=== PATIENT | female | born 2000 | race Caucasian/White ===

== ENCOUNTER 2022-08-29 17:54 | Emergency (ER) | payer OTHER, SELFPAY ==
--- OUTSIDE RECORDS SUMMARY | 2022-08-29 17:57 | XMS REPORT | Continuity of Care Document ---
:2000 Author Organization [facility] t Address [address] [place] [address] Care Team Providers Name Role Phone COREEN GORDON Primary Care Physician Unavailable COREEN GORDON Attending Clinician Unavailable Manju Pope CGC Attending Clinician Unavailable RAEANN GEORGE Attending Clinician Unavailable MALOU DORSEY Attending Clinician Unavailable TIRMIDEMETRIS, DO AATIF H. Attending Clinician Unavailable FUNMILAYO KNIGHT Admitting Clinician Unavailable TIRMIDEMETRIS, DO AATIF H. Admitting Clinician Unavailable Payers Payer Name Policy Type Policy Number Effective Date Expiration Date Claudette hayward [facility] [id number] 2019 00:00:00 [employer]AR Problems Condition Condition Condition Status Onset Resolution Last Treating Co mments Source Name Details Category Date Date Treatment Clinician Date Bipolar 1 Bipolar 1 Disease Active Kranthi ris disorder disorder 12-06 Health 00:00: 00 Severe Severe Disease Active Methodi episode of episode of 12-09 recurrent recurrent 00:00: Hosp yadira major major 00 l depressive depressive disorder, disorder, without without psychotic psychotic features features Hypokalemi Hypokalemi Disease Active M ethodi a a 12-09 00:00: Hospita 00 l Allergies, Adverse Reactions, Alerts This patient has no known allergies or adverse reactions. Family History Family Member Diagnosis Comments Start Date Stop Date Source Natural mother Bipolar disorder [facility] Maternal grandmother Diabetes [facility] Maternal grandmother Hypertension [facility] Social History Social Habit Start Date Stop Date Quantity Comments Source History [facility] B[facility] Alcohol Comment Alcohol intake 2021-12-25 2021-12-25 Lifetime [facility] 00:00:00 00:00:00 non-drinker (finding) History SDOR 2020-08-04 2020-08-04 1 [facility] Alcohol Frequency 00:00:00 00:00:00 Tobacco use and 2019-12-03 2019-12-03 Smokeless tobacco [facility] exposure 00:00:00 00:00:00 non-user Sex Assigned At [birth year] Elie [facility] 00:00:00 00:00:00 Smoking Status Start Date Stop Date Source Unknown if ever smoked [facility] Never smoked tobacco [facility] Medications Ordered Filled Start Stop Current Ordering Indication Dosage Frequency Signature Comments Components Source Medication Medication Date Date Medication? Clinician (SIG) Name Name risperiDONE Yes 1mg Take 1 Bertha is (RISPERDAL) 6-14 tablet by [facility] lt 1 mg tablet 00:00: mouth at 00 bedtime nightly citalopram Yes 20mg Take 1 Jude s (CELEXA) 20 6-14 tablet by [facility] lt mg tablet 00:00: mouth 00 every morning risperiDONE 2021-2021- No Bipolar 1 1mg Take 1 [facility] (RISPERDAL) -08 05-14 disorder tablet by Health 1 mg tablet 00:00: 00:00 mouth at 00 :00 bedtime nightly citalopram 2021-0 2021- No Bipolar 1 20mg Take 1 [facility] (CELEXA) 20 -08 05-14 disorder tablet by Health mg tablet 00:00: 00:00 mouth 00 :00 every morning citalopram 2021-0 2021- No 20mg Take 1 Bertha is (CELEXA) 20 12-25 tablet by alth mg tablet 00:00: 00:00 mouth 00 :00 every morning risperiDONE 2021-0 2021- No 1mg Take 1 Kranthi ris (RISPERDAL) 12-25 tablet by He alth 1 mg tablet 00:00: 00:00 mouth at 00 :00 bedtime nightly citalopram 2021- No Bipolar 20mg Take 1 H arris (CELEXA) 20 12-10 affective tablet by [facility] mg tablet 00:00: 00:00 disorder, mouth 00 :00 remission every status morning unspecified risperiDONE 2021- No Bipolar 1mg Q.5D Take 1 [facility] (RISPERDAL 12-09 affective tablet by [facility] M-TABS) 1 00:00: 00:00 disorder, mouth 2 mg soluble 00 :00 remission times tablet status daily unspecified No known No No known Metho di medications 12-[address] 16:44: s Hospita 59 l Immunizations Ordered Immunization Filled Immunization Date Status Commen ts Source Name Name HPV 9-valent 2020-08-02 Completed [facility] 00:00:00 Meningococcal groups 2020-08-02 Completed [facility] A,C,Y, W Vaccine 00:00:00 HPV 9-valent 2019-12-03 Completed [facility] 00:00:00 Meningococcal groups 2019-12-[address] [facility] is Health A,C,Y, W Vaccine 00:00:00 Hepatitis A 2011-12-10 Completed [facility] <Unspecified> 00:00:00 DTap <Unspecified> 2003-04-07 Completed [facility] 00:00:00 Hib <Unspecified> 2003-04-07 Completed [facility] 00:00:00 Pneumococcal 2003-04-07 Completed [facility] Conjugate 00:00:00 <Unspecified> Vital Signs Vital Name Observation Time Observation Value Comments Source Body height 2022-04-30 11:36:00 162.6 cm [facility] Body weight 2022-04-30 11:36:00 78.019 kg [facility] BMI 2022-04-30 11:36:00 29.52 kg/m2 [facility] Systolic blood pressure 2022-04-30 11:36:00 118 mm[Hg] [facility] Diastolic blood pressure 2022-04-30 11:36:00 75 mm[Hg] [facility] Heart rate 2022-04-30 11:36:00 89 /min [facility] Body temperature 2022-04-30 11:36:00 36.72 [facility] Respiratory rate 2022-04-30 11:36:00 18 /min [facility] Oxygen saturation in 2021-12-07 18:14:00 88 /min [facility] Arterial blood by Pulse oximetry Procedures Procedure Date / Time Performed Performing Clinician Sour e DRUG ABUSE SCREEN 11 W/ETOH, 2021-12-25 11:30:00 [facility] NO CONF TEST, URINE 2021-12-25 11:30:00 [facility] POC COVID-19 2021-12-06 00:00:00 [facility] URINE 2021-12-06 00:00:00 [facility] 2021-12-06 00:00:00 [facility] SCREEN Plan of Care Planned Activity Planned Date Details Comments Source Future Scheduled Test 2022-08-17 00:00:00 IMM Influenza [facility] Seasonal (>/= 19 yrs) [code = IMM Influenza Seasonal (>/= 19 yrs)] Future Scheduled Test 2003-03-20 00:00:00 COVID-19 Vaccine (#1) [facility] [code = COVID-19 Vaccine (#1)] Future Scheduled Test 2002 00:00:00 Fluoride Varnish [facility] [code = Fluoride Varnish] Encounters Start End Encounter Admission Attending Care Care Encounter Source Date/Time Date/Time Type Type Clinicians Facility Department ID 2021-03-27 Outpatient [facility] [id number] [place] 14:01:20 Health 2021-12-16 2021-12-16 Outpatient HARJINDERO, [facility] [id number] [place] 14:41:39 23:59:00 [facility] 2021-12-06 2021-12-06 Outpatient ARRAZOLO, [facility] [id number] [place] 16:58:30 23:59:00 [facility] 2021-04-02 2021-04-02 Telephone SANIA Pope [id number] [place] 00:00:00 00:00:00 Manju GOMEZ [id number] [facility] [id number] 2020-12-09 2020-12-12 Inpatient [facility] [id number] [place] 00:00:00 00:00:00 RAEANN [address] 2020-12-08 2020-12-09 Emergency [facility] [id number] [place] 00:00:00 00:00:00 AATIF [address] Results Test Description Test Time Test Comments Results Result Comments Source SARS-CoV-2 (COVID-19) RNA [Presence] in Respiratory sp ecimen by 2020-12-08 19:30:01 CHENG with probe detection Test Item Value Reference Range Interpretation Comme nts SARS-CoV-2 (COVID-19) RNA [Presence] in Respiratory Not detected No t-Detected specimen by CHENG with probe detection (test code = 88740-5)
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
[2022-08-29 20:00] VITALS: BP 115/78; TEMP 98.8; O2SAT 100
== END 2022-08-29 19:46 | disposition home or self-care (01) ==
LOC: ER 17:54
DX: Z04.6 Encounter for general psychiatric examination, requested by authority (principal); F31.9 Bipolar disorder, unspecified; F32.A Depression, unspecified; F41.9 Anxiety disorder, unspecified
CPT/HCPCS: 99281

== ENCOUNTER 2022-09-03 23:59 | Emergency (ER) | payer OTHER, SELFPAY ==
--- OUTSIDE RECORDS SUMMARY | 2022-09-04 00:02 | XMS REPORT | Continuity of Care Document ---
:2000 Author Organization [facility] t Address [address] [place] [address] Care Team Providers Name Role Phone Coreen Guido NP Primary Care Physician COREEN GUIDO Attending Clinician Unavailable Manju Pope CGC Attending Clinician Unavailable RAEANN GEORGE Attending Clinician Unavailable MALOU DORSEY Attending Clinician Unavailable TIRMIDEMETRIS DO AATIF HZoran Attending Clinician Unavailable FUNMILAYO KNIGHT Admitting Clinician Unavailable TIRMIDEMETRIS, DO AATIF H. Admitting Clinician Unavailable Payers Payer Name Policy Type Policy Number Effective Date Expiration Date Claudette hayward [facility] [id number] 2019 00:00:00 HEALTH PLAN STAR Problems Condition [...] Stop Date Source Natural mother Bipolar disorder [facility] Maternal grandmother Diabetes Ebrtha is [facility] Maternal grandmother Hypertension [facility] Social History Social Habit Start Date Stop Date Quantity Comments Source History SDOH [facility] Std Drinks [facility] B[facility] Comment Alcohol intake 2021-12-25 2021-12-25 Lifetime [facility] 00:00:00 00:00:00 non-drinker (finding) History SDGA 2020-08-04 2020-08-04 1 [facility] Alcohol Frequency 00:00:00 00:00:00 Tobacco use and 2019-12-03 2019-12-03 Smokeless tobacco [facility] exposure 00:00:00 00:00:00 non-user Sex Assigned At [birth year] [facility] 00:00:00 00:00:00 Smoking Status Start Date Stop Date Source Unknown if ever smoked [facility] Never smoked tobacco [facility] Medications Ordered Filled Start Stop Current Ordering Indication Dosage Frequency Signature Comments Components Source Medication Medication Date Date Medication? Clinician (SIG) Name Name risperiDONE Yes 1mg Take 1 Bertha is (RISPERDAL) 6-14 tablet by [facility] lt 1 mg tablet 00:00: mouth at 00 bedtime nightly citalopram 0 Yes 20mg Take 1 Harri s (CELEXA) 20 6-14 tablet by [facility] lth mg tablet 00:00: mouth 00 every morning risperiDONE Yes 1mg Take 1 Bertha is (RISPERDAL) 6-14 tablet by [facility] 1 mg tablet 00:00: mouth at 00 bedtime nightly citalopram 0 Yes 20mg Take 1 Harri s (CELEXA) 20 6-14 tablet by [facility] lth mg tablet 00:00: mouth 00 every morning risperiDONE 2021- No Bipolar 1 1mg Take 1 [facility] (RISPERDAL) -08 05-14 disorder tablet by Health 1 mg tablet 00:00: 00:00 mouth at 00 :00 bedtime nightly citalopram 2021- No Bipolar 1 20mg Take 1 [facility] (CELEXA) 20 3-22 06-14 disorder tablet by Health mg tablet 00:00: 00:00 mouth 00 :00 every morning risperiDONE 2021- No Bipolar 1 1mg Take 1 [facility] (RISPERDAL) 02-05 disorder tablet by Health 1 mg tablet 00:00: 00:00 mouth at 00 :00 bedtime nightly citalopram 2021- No Bipolar 1 20mg Take 1 [facility] (CELEXA) 20 02-05 disorder tablet by Health mg tablet 00:00: 00:00 mouth 00 :00 every morning citalopram 2021-2021- No 20mg Take 1 Bertha is (CELEXA) 20 12-25 tablet by alth mg tablet 00:00: 00:00 mouth 00 :00 every morning risperiDONE 2021-2021- No 1mg Take 1 Kranthi ris (RISPERDAL) 12-25 tablet by He alth 1 mg tablet 00:00: 00:00 mouth at 00 :00 bedtime nightly citalopram 2021-2021- No 20mg Take 1 Bertha is (CELEXA) 20 12-25 tablet by alth mg tablet 00:00: 00:00 mouth 00 :00 every morning risperiDONE 2021-2021- No 1mg Take 1 Kranthi ris (RISPERDAL) 12-25 tablet by alth 1 mg tablet 00:00: 00:00 mouth at 00 :00 bedtime nightly citalopram 2021-2021- No Bipolar 20mg Take 1 H arris (CELEXA) 20 12-10 affective tablet by Health mg tablet 00:00: 00:00 disorder, mouth 00 :00 remission every status morning unspecified citalopram 2021- No Bipolar 20mg Take 1 H arris (CELEXA) 20 12-10 affective tablet by Health mg tablet 00:00: 00:00 disorder, mouth 00 :00 remission every status morning unspecified risperiDONE 2021- No Bipolar 1mg Q.5D Take 1 [facility] (RISPERDAL 12-09 affective tablet by Health M-TABS) 1 00:00: 00:00 disorder, mouth 2 mg soluble 00 :00 remission times tablet status daily unspecified risperiDONE 2021- No Bipolar 1mg Q.5D Take 1 [facility] (RISPERDAL 12-09 affective tablet by [facility]) 1 00:00: 00:00 disorder, mouth 2 mg soluble 00 :00 remission times tablet status daily unspecified No known No No known Metho di medications 2-[address] [facility] No known No No known Metho di medications 2-[address] 16:44: [facility] Immunizations Ordered Immunization Filled Immunization Date Status Commen ts Source Name Name HPV 9-valent 2020-08-02 Completed [facility] 00[facility]00:00 Meningococcal groups 2020-08-02 Completed [facility] A,C,Y, W Vaccine 00:00:00 HPV 9-valent 2020-08-02 Completed [facility] 00:00:00 Meningococcal groups 2020-08-02 Completed [facility] A,C,Y, W Vaccine 00:00:00 HPV 9-valent 2019-12-03 Completed [facility] 00:00:00 Meningococcal groups 2019-12-03 Completed [facility] A,C,Y, W Vaccine 00:00:00 HPV 9-valent 2019-12-03 Completed [facility] 00:00:00 Meningococcal groups 2019-12-03 Completed [facility] A,C,Y, W Vaccine 00:00:00 Hepatitis A 2011-12-10 Completed [facility] <Unspecified> 00:00:00 Hepatitis A 2011-12-10 Completed [facility] <Unspecified> 00:00:00 DTap <Unspecified> 2003-04-07 Completed [facility] 00:00:00 Hib <Unspecified> 2003-04-07 Completed [facility] 00:00:00 Pneumococcal 2003-04-07 Completed [facility] Conjugate 00:00:00 <Unspecified> DTap <Unspecified> 2003-04-07 Completed [facility] 00:00:00 Hib <Unspecified> 2003-04-07 Completed [facility] 00:00:00 Pneumococcal 2003-04-07 Completed [facility] Conjugate 00:00:00 <Unspecified> Vital Signs Vital Name Observation Time Observation Value Comments Source Systolic blood pressure 2022-04-30 11:36:00 118 mm[Hg] [facility] Diastolic blood pressure 2022-04-30 11:36:00 75 mm[Hg] [facility] Heart rate 2022-04-30 11:36:00 89 /min [facility] Body temperature 2022-04-30 11:36:00 36.72 [place] [facility] Respiratory rate 2022-04-30 11:36:00 18 /min [facility] Body height 2022-04-30 11:36:00 162.6 cm [facility] Body weight 2022-04-30 11:36:00 78.019 kg [facility] BMI 2022-04-30 11:36:00 29.52 kg/m2 [facility] Oxygen saturation in 2021-12-07 18:14:00 88 /min [facility] Arterial blood by Pulse oximetry Procedures Procedure Date / Time Performed Performing Clinician [facility] e DRUG ABUSE SCREEN 11 W/ETOH, [facility]12[facility]25 [facility] NO CONF TEST, URINE 2021-12-25 11:30[facility]00 [facility] POC COVID-19 2021-12-06 00:00:00 Alexandro Jessica [facility] POC URINE 2021-12-06 00:00:[facility] A[facility]IL[facility] POC URINE DRUG 2021-12-06 00:00:00 [facility] SCREEN Plan of Care Planned Activity Planned Date Details Comments Source Future Scheduled Test 2022-08-17 00:00:00 IMM Influenza [facility] Seasonal (>/= 19 yrs) [code = IMM Influenza Seasonal (>/= 19 yrs)] Future Scheduled Test 2022-08-17 00:00:00 IMM Influenza [facility] Seasonal (>/= 19 yrs) [code = IMM Influenza Seasonal (>/= 19 yrs)] Future Scheduled Test 2003-03-20 00:00:00 COVID-19 Vaccine (#1) [facility] [code = COVID-19 Vaccine (#1)] Future Scheduled Test 2003-03-20 00:00:00 COVID-19 Vaccine (#1) [facility] [code = COVID-19 Vaccine (#1)] Future Scheduled Test 2002 00:00:00 Fluoride Varnish [facility] [code = Fluoride Varnish] Future Scheduled Test 2002 00:00:00 Fluoride Varnish [facility] [code = Fluoride Varnish] Encounters Start End Encounter Admission Attending Care Care Encounter Source Date/Time Date/Time Type Type Clinicians Facility Department ID 2021-03-27 Outpatient [facility] [id number] [place] 14:01:20 Health 2021-12-16 2021-12-16 Outpatient ARRAZOLO, [facility] [id number] [place] 14:41:39 23:59:00 [facility] 2021-12-06 2021-12-06 Outpatient ARRAZOLO, [facility] [id number] [place] 16:58:30 23:59:00 [facility] 2021-04-02 2021-04-02 [id number] [place] 00:00:00 00:00:00 Manju BAEZN [id number] [facility] [id number] 2020-12-09 2020-12-12 Inpatient NOLANI, [facility] 023 [id number] [place] 00:00:00 00:00:00 RAEANN [address] 2020-12-08 2020-12-09 Emergency TIRMIZI, [facility] [id number] [place] 00:00:00 00:00:00 AATIF [address] Results Test Description Test Time Test Comments Results Result Comments Source SARS-CoV-2 (COVID-19) RNA [Presence] in Respiratory sp ecimen by 2020-12-08 19:30:01 CHENG with probe detection Test Item Value Reference Range Interpretation Comme nts SARS-CoV-2 (COVID-19) RNA [Presence] in Respiratory Not detected No t-Detected specimen by CHENG with probe detection (test code = 15270-4) [facility]
--- NOTE | 2022-09-04 00:18 | EDPHYS ---
Physician Documentation [facility] Name: Vane Calle Age: 21 yrs Sex: Female : 2000 Arrival Date: 09/04/2022 Time: 00:04 Bed 10 Private MD: ED Physician Callum Benedict HPI: 09/04 00:15 This 21 yrs old Female presents to ER via Unassigned with complaints of Cat scratches. snw 00:15 The patient has a laceration related to: cats fighting, boyfriend's cat "latched on to snw leg", pt has cat scratches of various lengths to entirety of right posterior leg. The laceration(s) is(are) located on the right leg. Onset: The symptoms/episode began/occurred suddenly, just prior to arrival. Associated signs and symptoms: Pertinent positives: scratches, abrasions, minimal bleeding. The patient has not experienced similar symptoms in the past. The patient has not recently seen a physician. 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 - Social history:: Smoking status: Patient denies any tobacco usage or history of. ROS: 00:14 Constitutional: Negative for fever, chills, and weight loss, Eyes: Negative for injury, snw pain, redness, and discharge, ENT: Negative for injury, pain, and discharge, Neck: Negative for injury, pain, and swelling, Cardiovascular: Negative for chest pain, palpitations, and edema, Respiratory: Negative for shortness of breath, cough, wheezing, and pleuritic chest pain, Abdomen/GI: Negative for abdominal pain, nausea, vomiting, diarrhea, and constipation, Back: Negative for injury and pain, : Negative for injury, bleeding, discharge, and swelling, MS/Extremity: Negative for injury and deformity, Neuro: Negative for headache, weakness, numbness, tingling, and seizure, Psych: Negative for depression, anxiety, suicide ideation, homicidal ideation, and hallucinations. 00:14 Skin: Positive for abrasion(s), cat scratches. Exam: 00:14 Constitutional: This is a well developed, well nourished patient who is awake, alert, snw and in no acute distress. Head/Face: Normocephalic, atraumatic. Eyes: Pupils equal round and reactive to light, extra-ocular motions intact. Lids and lashes normal. Conjunctiva and sclera are non-icteric and not injected. Cornea within normal limits. Periorbital areas with no swelling, redness, or edema. ENT: Nares patent. No nasal discharge, no septal abnormalities noted. Tympanic membranes are normal and external auditory canals are clear. Oropharynx with no redness, swelling, or masses, exudates, or evidence of obstruction, uvula midline. Mucous membranes moist. Neck: Trachea midline, no thyromegaly or masses palpated, and no cervical lymphadenopathy. Supple, full range of motion without nuchal rigidity, or vertebral point tenderness. No Meningismus. Chest/axilla: Normal chest wall appearance and motion. Nontender with no deformity. No lesions are appreciated. Cardiovascular: Regular rate and rhythm with a normal S1 and S2. No gallops, murmurs, or rubs. Normal PMI, no JVD. No pulse deficits. Respiratory: Lungs have equal breath sounds bilaterally, clear to auscultation and percussion. No rales, rhonchi or wheezes noted. No increased work of breathing, no retractions or nasal flaring. Abdomen/GI: Soft, non-tender, with normal bowel sounds. No distension or tympany. No guarding or rebound. No evidence of tenderness throughout. Back: No spinal tenderness. No costovertebral tenderness. Full range of motion. MS/ Extremity: Pulses equal, no cyanosis. Neurovascular intact. Full, normal range of motion. Neuro: Awake and alert, GCS 15, oriented to person, place, time, and situation. Cranial nerves II-XII grossly intact. Motor strength 5/5 in all extremities. Sensory grossly intact. Cerebellar exam normal. Normal gait. 00:14 Skin: Appearance: normal except for affected area, injury, abrasion(s), small abrasion noted, of the right gluteal fold, right hamstring, posterior aspect of right knee, right calf and right heel. Vital Signs: 00:19 BP 129 / 87; Pulse 99; Resp 18; Temp 98.1(O); Pulse Ox 96% on R/A; Weight 81.65 kg (R); kl Height 5 ft. 7 in. (170.18 cm); Pain 9; 00:19 Body Mass Index 28.19 (81.65 kg, 170.18 cm) kl MDM: 00:08 Patient medically screened. snw 00:13 Data reviewed: vital signs, nurses notes. Counseling: I had a detailed discussion with snw the patient and/or guardian regarding: the historical points, exam findings, and any diagnostic results supporting the discharge/admit diagnosis, the need for outpatient follow up, to return to the emergency department if symptoms worsen or persist or if there are any questions or concerns that arise at home. Special discussion: I discussed in detail with the patient the higher chance of wound infection based on his presenting history. Based on the history and exam findings, there is no indication for further emergent testing or inpatient evaluation. I discussed with the patient/guardian the need to see the primary care provider for further evaluation of the symptoms. 00:19 ED course: Pt up to date on tetanus immunization. snw Administered Medications: 00:55 Drug: [place] (HYDROcodone-acetaminophen) (7.5 mg-325 mg) 1 tabs Route: PO; kl 01:12 Follow up: Response: No adverse reaction; Marked relief of symptoms kl 00:55 Drug: Phenergan (promethazine) 25 mg Route: PO; kl 01:12 Follow up: Response: No adverse reaction; Marked relief of symptoms kl 00:55 Drug: Augmentin (Amoxicillin-Clavulanate) 875 mg Route: PO; kl 01:12 Follow up: Response: No adverse reaction; Marked relief of symptoms kl 01:12 Follow up: Response: No adverse reaction; Marked relief of symptoms kl 00:55 Drug: Hibiclens (chlorhexidine) Liquid 4 % 1 application Route: Topical; Site: affected kl area; Disposition: 01:17 Co-signature as Attending Physician, Callum Benedict MD. rn Disposition Summary: 09/04/22 00:18 Discharge Ordered Location: Home snw Condition: Stable snw Diagnosis - Scratched by cat snw Followup: snw - With: Emergency Department - When: As needed - Reason: Worsening of condition Followup: snw - With: Private Physician - When: 2 - 3 days - Reason: Recheck today's complaints, Continuance of care, Re-evaluation by your physician Discharge Instructions: - Discharge Summary Sheet snw - Abrasion snw - Cat-Scratch Disease, Adult snw Forms: - Medication Reconciliation Form snw - Thank You Letter snw - Antibiotic Education snw - Prescription Opioid Use snw Prescriptions: - Augmentin 875-125 mg Oral Tablet - take 1 tablet by ORAL route every 12 hours for 10 days; 20 tablet; Refills: 0, snw Product Selection Permitted - Tramadol 50 mg Oral Tablet - take 1 tablet by ORAL route every 8 hours as needed; 12 tablet; Refills: 0, snw Product Selection Permitted Signatures: Wendi Chappell RN RN [place], LEAD SYSTEMS DEVELOPER-C LEAD SYSTEMS DEVELOPER-Csnw Callum Benedict MD MD health information internship: (The following items were deleted from the chart) 01:13 PMHx: depressive disorder; barbara jimenez 01:13 PMHx: Bipolar disorder; barbara 01:13 PMHx: Anxiety; [facility]
[2022-09-04] MEDS ORDERED: AMOX/K CLAV 875 MG TAB ONE (01:01)
[2022-09-04] MEDS ORDERED: HYDROCODONE/APAP 7.5/325 MG TAB ONE (01:02)
[2022-09-04] MEDS ORDERED: PROMETHAZINE 25 MG TABLET ONE (01:02)
--- NOTE | 2022-09-04 01:14 | ER ---
Nurse's Notes [facility] Name: Vane Calle Age: 21 yrs Sex: Female : 2000 Arrival Date: 09/04/2022 Time: 00:04 Bed 10 Private MD: Diagnosis: Scratched by cat Presentation: 09/04 00:19 Chief complaint: Patient states: cat scratches to posterior bilateral extremities. Coronavirus screen: Vaccine status: Patient reports being unvaccinated. Ebola Screen: Patient negative for fever greater than or equal to 101.5 degrees Fahrenheit, and additional compatible Ebola Virus Disease symptoms. Initial Sepsis Screen: Does the patient meet any 2 criteria? No. Patient's initial sepsis screen is negative. Does the patient have a suspected source of infection? No. Patient's initial sepsis screen is negative. Risk Assessment: Do you want to hurt yourself or someone else? Patient reports no desire to harm self or others. Onset of symptoms was September 04, 2022. 00:19 Method Of Arrival: Ambulatory 00:19 Acuity: OLGA 4 kl Triage Assessment: 00:21 Bite description: scratches. General: Appears distressed, uncomfortable, Behavior is kl calm, cooperative. Pain: Complains of pain in back of left leg, back of right leg and right heel. Derm: Wound noted buttocks, back of left leg, back of right leg and right heel Wound is scratches minimal bleeding noted. 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 - Social history:: Smoking status: Patient denies any tobacco usage or history of. Screenin:11 Abuse screen: Denies threats or abuse. Nutritional screening: No deficits noted. Tuberculosis screening: No symptoms or risk factors identified. Fall Risk None identified. Assessment: 01:12 Reassessment: Patient appears in no apparent distress at this time. Patient and/or kl family updated on plan of care and expected duration. Pain level reassessed. Patient is alert, oriented x 3, equal unlabored respirations, skin warm/dry/pink. Patient states symptoms have improved. Vital Signs: 00:19 BP 129 / 87; Pulse 99; Resp 18; Temp 98.1(O); Pulse Ox 96% on R/A; Weight 81.65 kg (R); kl Height 5 ft. 7 in. (170.18 cm); Pain 9/10; 00:19 Body Mass Index 28.19 (81.65 kg, 170.18 cm) ED Course: 00:04 Patient arrived in ED. [email or web address] 00:04 Le Jean FNP-C [facility] snw 00:04 Callum Benedict MD is Attending Physician. snw 00:21 Triage completed. kl 01:11 No provider procedures requiring assistance completed. kl 01:11 Wound care: to abrasion, located on buttocks and back of right leg and back of left leg kl and right leg and right heel and right calf was cleaned with Hibiclens, Patient tolerated well. 01:11 Patient has correct armband on for positive identification. kl Administered Medications: 00:55 Drug: [place] (HYDROcodone-acetaminophen) (7.5 mg-325 mg) 1 tabs Route: PO; kl 01:12 Follow up: Response: No adverse reaction; Marked relief of symptoms kl 00:55 Drug: Phenergan (promethazine) 25 mg Route: PO; kl 01:12 Follow up: Response: No adverse reaction; Marked relief of symptoms kl 00:55 Drug: Augmentin (Amoxicillin-Clavulanate) 875 mg Route: PO; kl 01:12 Follow up: Response: No adverse reaction; Marked relief of symptoms kl 01:12 Follow up: Response: No adverse reaction; Marked relief of symptoms kl 00:55 Drug: Hibiclens (chlorhexidine) Liquid 4 % 1 application Route: Topical; Site: affected kl area; Outcome: 00:18 Discharge ordered by . snw 01:13 Patient left the ED. Signatures: Wendi Chappell, RN RN kl Le Jean FNP-C FNP-Emily Dominguez [email or web address] Corrections: (The following items were deleted from the chart) 01:13 PMHx: depressive disorder; [facility] 01:13 PMHx: Bipolar disorder; [facility] :13 01:13 PMHx: Anxiety; [facility]
[2022-09-04 01:37] VITALS: BP 129/87; TEMP 98.1; O2SAT 96
== END 2022-09-04 01:13 | disposition home or self-care (01) ==
LOC: ER 23:59
DX: S80.811A Abrasion, right lower leg, initial encounter (principal); W55.03XA Scratched by cat, initial encounter
CPT/HCPCS: 99283; Q0169